=== PATIENT | female | born 1945 | race Caucasian/White ===

== ENCOUNTER → 2017-01-26 | Outpatient (CLI) | payer MEDICARE ==
[~2017-01-26] MED LIST: ASPI-496 PO; ASPI-650 PO; ATOR20TA9 PO; CA C1TAB39 PO; CALC-112 PO; CELE200C PO; DULO20CA45 PO; DULO30CA2 PO; DULO60CA7 PO; FESO4TAB PO; FLAX1000 PO; HYDR-3245 PO; LATA2.5D3 EACHEYE; MAGN100T6 PO; METO25TA35 PO; MILN50TA PO; MIRA25TA PO; MONT10TA9 PO; MULT-717 PO; NITR0.4T SL; NITR0.4T28 SL; OMEG1CAP48 PO; OMEP-110 PO; PANT40TA3 PO; PRAM0.255 PO; PREG150C PO; SANCTURA; SERUM EYE; SOLI10TA2 PO; TERB250T3 PO; TRAZ100T15 PO; VIT1CAPS9 PO; [UNRECOGNIZED DRUG - OTHER]
== END | disposition home or self-care (01) ==
LOC: CFH 12:42
PROVIDERS: ATTEND Nurse Practitioner Primary Care
DX: M51.36 Other intervertebral disc degeneration, lumbar region (principal); M51.35 Other intervertebral disc degeneration, thoracolumbar region; M48.06 Spinal stenosis, lumbar region; M43.16 Spondylolisthesis, lumbar region; Z98.890 Other specified postprocedural states
CPT/HCPCS: 72131

== ENCOUNTER → 2017-06-24 | Outpatient (CLI) | payer MEDICARE | END | disposition home or self-care (01) | LOC: RAD 13:40 | PROVIDERS: ATTEND Internal Medicine | DX: R91.8 Other nonspecific abnormal finding of lung field (principal); J45.41 Moderate persistent asthma with (acute) exacerbation | CPT/HCPCS: 71275 ==

== ENCOUNTER 2017-07-04 14:43 | Inpatient (IN) | payer MEDICARE ==
[~2017-07-04] VITALS: Ht 165.1 cm; Wt 88.6 kg
[2017-07-04] MEDS ORDERED: ALBUTEROL/IPRATROPIUM 2.5MG/0.5MG, 3 ML ONE (15:47)
[2017-07-04] MEDS: ALBUTEROL/IPRATROPIUM 2.5MG/0.5MG, 3 ML NPPB SCH ×4 (15:53→22:01)
[2017-07-04] MEDS ORDERED: SODIUM CHLORIDE FLUSH 10ML SYR IVF ONE (16:00)
[2017-07-04] MEDS ORDERED: CEFTRIAXONE PMX 1GM/50ML 50 ML IVPB ONE (16:00)
[2017-07-04] MEDS ORDERED: methylPREDNISolone SOD SUCC 125 MG/2 ML IVP ONE (16:00)
[2017-07-04] MEDS ORDERED: AZITHROMYCIN 500 MG in SODIUM CHLORIDE 0.9% 250 ML IVPB ONE (16:00)
[2017-07-04] MEDS ORDERED: BEPO10DR3 OP (16:09)
[2017-07-04] MEDS ORDERED: HYDR200T PO (16:09)
[2017-07-04] MEDS ORDERED: TROS20TA2 PEG (16:09)
[2017-07-04] MEDS ORDERED: LIGH1DRO OP (16:09)
[2017-07-04] MEDS ORDERED: HYDRO EYE (16:09)
[2017-07-04] MEDS ORDERED: TAPE150T PO (16:09)
[2017-07-04] MEDS ORDERED: FLUT1DIS5 IH (16:09)
[2017-07-04] MEDS ORDERED: TAPE50TA9 PO (16:09)
[2017-07-04] MEDS ORDERED: CEVI30CA4 PO (16:09)
[2017-07-04] MEDS ORDERED: LIFI1DRO OP (16:09)
[2017-07-04] MEDS ORDERED: METO50TA82 PO (16:09)
[2017-07-04 16:14] LABS: BASOPHILS # (AUTO) 0.02 x10^3/uL (0-0.1); BASOPHILS % (AUTO) 0 % (0-1); EOSINOPHILS # (AUTO) 0.22 x10^3/uL (0-0.4); EOSINOPHILS % (AUTO) 2 % (1-7); LYMPHOCYTES # (AUTO) 1.17 x10^3/uL (1-3.4); LYMPHOCYTES % (AUTO) 9 % (22-44); MD NO; MEAN CORPUSCULAR HEMOGLOBIN 28.5 pg (27.0-34.8); MEAN CORPUSCULAR HGB CONC 32.9 g/dL (32.4-35.8); MEAN CORPUSCULAR VOLUME 86.4 fL (80-100); MEAN PLATELET VOLUME 7.9 fL (7.4-10.4); MONOCYTES # (AUTO) 0.77 x10^3/uL (0.2-0.8); MONOCYTES % (AUTO) 6 % (2-9); NEUTROPHILS # (AUTO) 10.95 x10^3/uL (1.8-6.8); NEUTROPHILS % (AUTO) 83 % (42-75); PLATELET COUNT 269 x10^3/uL (130-400); RED BLOOD COUNT 5.69 x10^6/uL (3.82-5.3); RED CELL DISTRIBUTION WIDTH 15.2 % (9.6-15.2)
[2017-07-04 16:21] LABS: INTERNATIONAL NORMALIZED RATIO 0.98 (0.93-1.1); PROTHROMBIN TIME 10.2 Seconds (9.6-11.5)
[2017-07-04 16:25] LABS: ALBUMIN 3.7 g/dL (3.4-5.0); ANION GAP 5 mmol/L (5-15); CALCIUM 8.6 mg/dL (8.5-10.1); CHLORIDE 104 mmol/L (98-107); CREATININE 0.86 mg/dL (0.55-1.02)
[2017-07-04 16:28] LABS: TROPONIN I < 0.015 ng/mL (0.000-0.045)
[2017-07-04] MEDS ORDERED: CEFTRIAXONE PMX 1GM/50ML 50 ML ONE (16:53)
[2017-07-04] MEDS ORDERED: methylPREDNISolone SOD SUCC 125 MG/2 ML ONE (16:54)
[2017-07-04] MEDS: SODIUM CHLORIDE 0.9% 1,000 ML IV SCH (17:20)
[2017-07-04] MEDS ORDERED: LABETALOL 5MG/ML, 20ML IVPush PRN (17:30)
[2017-07-04] MEDS ORDERED: ENALAPRILAT 1.25 MG/ML, 2ML IVPush PRN (17:30)
[2017-07-04] MEDS ORDERED: BISACODYL 10 MG SUPP PR PRN (17:30)
[2017-07-04] MEDS ORDERED: SODIUM CHLORIDE FLUSH 10ML SYR IVF PRN (17:30)
[2017-07-04] MEDS ORDERED: DOCUSATE 100 MG CAPSULE PO PRN (17:30)
[2017-07-04] MEDS ORDERED: ONDANSETRON ODT 4 MG PO PRN (17:30)
[2017-07-04] MEDS ORDERED: ONDANSETRON 2MG/ML, 2ML IVPush PRN (17:30)
[2017-07-04] MEDS ORDERED: TAPENTADOL HCL 50 MG PO SCH (17:30)
[2017-07-04 19:35] VITALS: BP 104/70
[2017-07-04] MEDS: FLUTICASONE/VILANTEROL 200-25MCG/INH INH SCH (21:00)
[2017-07-04] MEDS: TAPENTADOL HCL 150 MG PO SCH (21:00)
[2017-07-04 21:09] VITALS: BP 108/65
[2017-07-04] MEDS: HEPARIN 5,000 UNITS/ML, 1ML SQ SCH (22:22)
[2017-07-04] MEDS: MONTELUKAST 10 MG TABLET PO SCH (22:23)
[2017-07-04] MEDS: PREGABALIN 150 MG CAPSULE PO SCH (22:23)
[2017-07-04] MEDS: LATANOPROST OPHTH 0.005%, 2.5ML EACHEYE SCH (22:23)
[2017-07-04] MEDS: ATORVASTATIN 20 MG TABLET PO SCH (22:23)
[2017-07-04] MEDS: TRAZODONE 100MG TABLET PO SCH (22:23)
[2017-07-04] MEDS: PRAMIPEXOLE 0.5MG TABLET PO SCH (22:24)
[2017-07-04] MEDS: HYDROXYCHLOROQUINE 200 MG TABLET PO SCH (22:24)
[2017-07-04] MEDS: CEVIMELINE HCL 30 MG PO SCH (22:25)
[2017-07-04] MEDS: TEMPLATE NON-FORMULARY MED. (Trospium Chloride 20 MG) PEG SCH (22:26)
[2017-07-04] MEDS: GUAIFENESIN/DM 200-20MG, 10ML UDC PO PRN (22:56)
[2017-07-05 02:50] VITALS: BP 112/70
[2017-07-05] MEDS: HEPARIN 5,000 UNITS/ML, 1ML SQ SCH ×3 (04:46→20:21)
[2017-07-05 05:26] LABS: MEAN CORPUSCULAR HEMOGLOBIN 28.6 pg (27.0-34.8); MEAN CORPUSCULAR HGB CONC 32.8 g/dL (32.4-35.8); MEAN CORPUSCULAR VOLUME 87.1 fL (80-100); MEAN PLATELET VOLUME 7.8 fL (7.4-10.4); PLATELET COUNT 244 x10^3/uL (130-400); RED BLOOD COUNT 5.16 x10^6/uL (3.82-5.3); RED CELL DISTRIBUTION WIDTH 15.3 % (9.6-15.2)
[2017-07-05 05:37] LABS: ANION GAP 7 mmol/L (5-15); CHLORIDE 109 mmol/L (98-107); CREATININE 0.79 mg/dL (0.55-1.02)
[2017-07-05 06:08] LABS: BASOPHILS % (AUTO) 0 % (0-1); EOSINOPHILS % (AUTO) 0 % (1-7); LYMPHOCYTES # (AUTO) 0.57 x10^3/uL (1-3.4); LYMPHOCYTES % (AUTO) 4 % (22-44); MD SCAN; MONOCYTES # (AUTO) 0.08 x10^3/uL (0.2-0.8); MONOCYTES % (AUTO) 1 % (2-9); NEUTROPHILS # (AUTO) 13.88 x10^3/uL (1.8-6.8); NEUTROPHILS % (AUTO) 96 % (42-75)
[2017-07-05] MEDS: ALBUTEROL/IPRATROPIUM 2.5MG/0.5MG, 3 ML NPPB SCH ×4 (06:35→19:15)
[2017-07-05] MEDS: SODIUM CHLORIDE 0.9% 1,000 ML IV SCH ×2 (06:45→20:40)
[2017-07-05] MEDS: TAPENTADOL HCL 150 MG PO SCH ×2 (09:00→20:23)
[2017-07-05] MEDS: MULTIVITAMINS/MINERALS TABLET PO SCH (09:00)
[2017-07-05] MEDS: CEVIMELINE HCL 30 MG PO SCH ×3 (09:00→20:28)
[2017-07-05] MEDS: SENNA/DOCUSATE TABLET PO SCH (09:00)
[2017-07-05] MEDS: TEMPLATE NON-FORMULARY MED. (Mirabegron** (Myrbetriq**) 25 MG) HOMEMEDPO SCH (09:00)
[2017-07-05] MEDS: TEMPLATE NON-FORMULARY MED. (Trospium Chloride 20 MG) PEG SCH ×2 (09:00→20:28)
[2017-07-05] MEDS: MAGNESIUM OXIDE 400 MG TABLET PO SCH (09:36)
[2017-07-05] MEDS: DULOXETINE 30 MG CAPSULE.DR PO SCH (09:37)
[2017-07-05] MEDS: ASPIRIN 325 MG TABLET EC PO SCH (09:37)
[2017-07-05] MEDS: PREGABALIN 150 MG CAPSULE PO SCH ×2 (09:37→20:22)
[2017-07-05] MEDS: METOPROLOL TARTRATE 50 MG TABLET PO SCH (09:38)
[2017-07-05] MEDS: HYDROXYCHLOROQUINE 200 MG TABLET PO SCH ×2 (09:38→20:22)
[2017-07-05 09:40] VITALS: BP 100/71
[2017-07-05] MEDS: ACETAMINOPHEN 325 MG TABLET PO PRN (09:48)
[2017-07-05] MEDS: FLUTICASONE/VILANTEROL 200-25MCG/INH INH SCH (11:28)
[2017-07-05] MEDS: AZITHROMYCIN 500 MG in SODIUM CHLORIDE 0.9% 250 ML IV SCH (11:28)
[2017-07-05 12:32] VITALS: BP 95/55
[2017-07-05] MEDS ORDERED: CEFTRIAXONE 1,000 MG in SODIUM CHLORIDE 0.9% 50 ML IV SCH (13:00)
[2017-07-05 20:17] VITALS: BP 97/53
[2017-07-05] MEDS: GUAIFENESIN/DM 200-20MG, 10ML UDC PO PRN (20:21)
[2017-07-05] MEDS: LATANOPROST OPHTH 0.005%, 2.5ML EACHEYE SCH (20:21)
[2017-07-05] MEDS: TRAZODONE 100MG TABLET PO SCH (20:22)
[2017-07-05] MEDS: MONTELUKAST 10 MG TABLET PO SCH (20:22)
[2017-07-05] MEDS: ATORVASTATIN 20 MG TABLET PO SCH (20:22)
[2017-07-05] MEDS: PRAMIPEXOLE 0.5MG TABLET PO SCH (20:22)
[2017-07-06 00:59] VITALS: BP 123/70
[2017-07-06] MEDS: HEPARIN 5,000 UNITS/ML, 1ML SQ SCH ×3 (04:29→20:55)
[2017-07-06 05:27] LABS: ANION GAP 3 mmol/L (5-15); CALCIUM 8.4 mg/dL (8.5-10.1); CHLORIDE 113 mmol/L (98-107)
[2017-07-06 05:29] LABS: CREATININE 0.55 mg/dL (0.55-1.02)
[2017-07-06 05:40] LABS: BASOPHILS # (AUTO) 0.03 x10^3/uL (0-0.1); BASOPHILS % (AUTO) 0 % (0-1); EOSINOPHILS # (AUTO) 0.01 x10^3/uL (0-0.4); EOSINOPHILS % (AUTO) 0 % (1-7); LYMPHOCYTES # (AUTO) 1.11 x10^3/uL (1-3.4); LYMPHOCYTES % (AUTO) 10 % (22-44); MD NO; MEAN CORPUSCULAR HEMOGLOBIN 28.9 pg (27.0-34.8); MEAN CORPUSCULAR HGB CONC 32.9 g/dL (32.4-35.8); MEAN CORPUSCULAR VOLUME 87.7 fL (80-100); MEAN PLATELET VOLUME 8.1 fL (7.4-10.4); MONOCYTES # (AUTO) 0.62 x10^3/uL (0.2-0.8); MONOCYTES % (AUTO) 6 % (2-9); NEUTROPHILS # (AUTO) 8.87 x10^3/uL (1.8-6.8); NEUTROPHILS % (AUTO) 83 % (42-75); PLATELET COUNT 220 x10^3/uL (130-400); RED BLOOD COUNT 4.67 x10^6/uL (3.82-5.3); RED CELL DISTRIBUTION WIDTH 15.9 % (9.6-15.2)
[2017-07-06 06:53] VITALS: BP 120/72
[2017-07-06] MEDS: ALBUTEROL/IPRATROPIUM 2.5MG/0.5MG, 3 ML NPPB SCH ×4 (07:10→19:16)
[2017-07-06] MEDS: FLUTICASONE/VILANTEROL 200-25MCG/INH INH SCH (07:57)
[2017-07-06] MEDS: METOPROLOL TARTRATE 50 MG TABLET PO SCH (07:57)
[2017-07-06] MEDS: ASPIRIN 325 MG TABLET EC PO SCH (07:57)
[2017-07-06] MEDS: MAGNESIUM OXIDE 400 MG TABLET PO SCH (07:58)
[2017-07-06] MEDS: DULOXETINE 30 MG CAPSULE.DR PO SCH (07:58)
[2017-07-06] MEDS: MULTIVITAMINS/MINERALS TABLET PO SCH (07:58)
[2017-07-06] MEDS: HYDROXYCHLOROQUINE 200 MG TABLET PO SCH ×2 (07:58→20:54)
[2017-07-06] MEDS: PREGABALIN 150 MG CAPSULE PO SCH ×2 (07:58→20:55)
[2017-07-06] MEDS: SENNA/DOCUSATE TABLET PO SCH (07:59)
[2017-07-06] MEDS: TAPENTADOL HCL 150 MG PO SCH ×2 (07:59→20:55)
[2017-07-06] MEDS: TEMPLATE NON-FORMULARY MED. (Mirabegron** (Myrbetriq**) 25 MG) HOMEMEDPO SCH (07:59)
[2017-07-06] MEDS: CEVIMELINE HCL 30 MG PO SCH ×3 (08:00→20:56)
[2017-07-06] MEDS: TEMPLATE NON-FORMULARY MED. (Trospium Chloride 20 MG) PEG SCH ×2 (08:00→20:56)
[2017-07-06] MEDS: SODIUM CHLORIDE 0.9% 1,000 ML IV SCH (08:34)
[2017-07-06] MEDS: CEFTRIAXONE PMX 2GM/50ML 50 ML IV SCH (10:33)
[2017-07-06] MEDS: AZITHROMYCIN 500 MG in SODIUM CHLORIDE 0.9% 250 ML IV SCH (12:02)
[2017-07-06 14:18] VITALS: BP 114/66
[2017-07-06 20:00] VITALS: BP 106/65
[2017-07-06] MEDS: ATORVASTATIN 20 MG TABLET PO SCH (20:54)
[2017-07-06] MEDS: MONTELUKAST 10 MG TABLET PO SCH (20:54)
[2017-07-06] MEDS: PRAMIPEXOLE 0.5MG TABLET PO SCH (20:54)
[2017-07-06] MEDS: TRAZODONE 100MG TABLET PO SCH (20:55)
[2017-07-06] MEDS: LATANOPROST OPHTH 0.005%, 2.5ML EACHEYE SCH (20:57)
[2017-07-06] MEDS: ACETAMINOPHEN 325 MG TABLET PO PRN (21:30)
[2017-07-07 02:00] VITALS: BP 130/76
[2017-07-07] MEDS: HEPARIN 5,000 UNITS/ML, 1ML SQ SCH ×3 (05:00→20:05)
[2017-07-07 05:24] LABS: BASOPHILS # (AUTO) 0.04 x10^3/uL (0-0.1); BASOPHILS % (AUTO) 1 % (0-1); EOSINOPHILS # (AUTO) 0.11 x10^3/uL (0-0.4); EOSINOPHILS % (AUTO) 1 % (1-7); LYMPHOCYTES # (AUTO) 1.28 x10^3/uL (1-3.4); LYMPHOCYTES % (AUTO) 14 % (22-44); MD NO; MEAN CORPUSCULAR HEMOGLOBIN 28.7 pg (27.0-34.8); MEAN CORPUSCULAR HGB CONC 33.2 g/dL (32.4-35.8); MEAN CORPUSCULAR VOLUME 86.4 fL (80-100); MEAN PLATELET VOLUME 8.1 fL (7.4-10.4); MONOCYTES % (AUTO) 8 % (2-9); NEUTROPHILS % (AUTO) 77 % (42-75); PLATELET COUNT 228 x10^3/uL (130-400); RED BLOOD COUNT 4.85 x10^6/uL (3.82-5.3); RED CELL DISTRIBUTION WIDTH 15.8 % (9.6-15.2)
[2017-07-07 05:33] LABS: ALANINE AMINOTRANSFERASE 22 U/L (12-78); ALBUMIN 2.7 g/dL (3.4-5.0); ANION GAP 4 mmol/L (5-15); CALCIUM 8.8 mg/dL (8.5-10.1); CHLORIDE 111 mmol/L (98-107); CREATININE 0.69 mg/dL (0.55-1.02)
[2017-07-07 05:35] LABS: ALKALINE PHOSPHATASE 64 U/L (45-117); BILIRUBIN,TOTAL 0.5 mg/dL (0.2-1.0)
[2017-07-07 06:46] VITALS: BP 131/72
[2017-07-07] MEDS: ALBUTEROL/IPRATROPIUM 2.5MG/0.5MG, 3 ML NPPB SCH ×4 (07:00→19:22)
[2017-07-07] MEDS: ASPIRIN 325 MG TABLET EC PO SCH (07:47)
[2017-07-07] MEDS: FLUTICASONE/VILANTEROL 200-25MCG/INH INH SCH (07:47)
[2017-07-07] MEDS: HYDROXYCHLOROQUINE 200 MG TABLET PO SCH ×2 (07:47→20:04)
[2017-07-07] MEDS: DULOXETINE 30 MG CAPSULE.DR PO SCH (07:47)
[2017-07-07] MEDS: SENNA/DOCUSATE TABLET PO SCH (07:47)
[2017-07-07] MEDS: PREGABALIN 150 MG CAPSULE PO SCH ×2 (07:47→20:04)
[2017-07-07] MEDS: MULTIVITAMINS/MINERALS TABLET PO SCH (07:48)
[2017-07-07] MEDS: METOPROLOL TARTRATE 50 MG TABLET PO SCH (07:48)
[2017-07-07] MEDS: CEVIMELINE HCL 30 MG PO SCH ×3 (07:49→20:05)
[2017-07-07] MEDS: TEMPLATE NON-FORMULARY MED. (Trospium Chloride 20 MG) PEG SCH ×2 (07:49→20:05)
[2017-07-07] MEDS: TEMPLATE NON-FORMULARY MED. (Mirabegron** (Myrbetriq**) 25 MG) HOMEMEDPO SCH (07:50)
[2017-07-07] MEDS: TAPENTADOL HCL 150 MG PO SCH ×2 (07:51→19:50)
[2017-07-07] MEDS: MAGNESIUM OXIDE 400 MG TABLET PO SCH (07:57)
[2017-07-07] MEDS ORDERED: SODIUM CHLORIDE 0.45% 500 ML IV SCH (08:30)
[2017-07-07] MEDS: CEFTRIAXONE PMX 2GM/50ML 50 ML IV SCH (10:37)
[2017-07-07] MEDS: ACETAMINOPHEN 325 MG TABLET PO PRN (10:37)
[2017-07-07] MEDS: AZITHROMYCIN 500 MG in SODIUM CHLORIDE 0.9% 250 ML IV SCH (11:59)
[2017-07-07 12:38] VITALS: BP 98/59
[2017-07-07 20:00] VITALS: BP 101/53
[2017-07-07] MEDS: GUAIFENESIN/DM 200-20MG, 10ML UDC PO PRN (20:03)
[2017-07-07] MEDS: TRAZODONE 100MG TABLET PO SCH (20:04)
[2017-07-07] MEDS: MONTELUKAST 10 MG TABLET PO SCH (20:04)
[2017-07-07] MEDS: ATORVASTATIN 20 MG TABLET PO SCH (20:04)
[2017-07-07] MEDS: PRAMIPEXOLE 0.5MG TABLET PO SCH (20:04)
[2017-07-07] MEDS: LATANOPROST OPHTH 0.005%, 2.5ML EACHEYE SCH (20:05)
[2017-07-08 01:45] VITALS: BP 109/77
[2017-07-08] MEDS: ACETAMINOPHEN 325 MG TABLET PO PRN ×2 (04:01→10:19)
[2017-07-08] MEDS: HEPARIN 5,000 UNITS/ML, 1ML SQ SCH ×2 (05:17→13:00)
[2017-07-08 05:52] LABS: BASOPHILS # (AUTO) 0.02 x10^3/uL (0-0.1); BASOPHILS % (AUTO) 0 % (0-1); EOSINOPHILS # (AUTO) 0.14 x10^3/uL (0-0.4); EOSINOPHILS % (AUTO) 2 % (1-7); LYMPHOCYTES # (AUTO) 1.16 x10^3/uL (1-3.4); LYMPHOCYTES % (AUTO) 13 % (22-44); MD NO; MEAN CORPUSCULAR HEMOGLOBIN 28.5 pg (27.0-34.8); MEAN CORPUSCULAR VOLUME 86.6 fL (80-100); MEAN PLATELET VOLUME 8.2 fL (7.4-10.4); MONOCYTES # (AUTO) 0.74 x10^3/uL (0.2-0.8); MONOCYTES % (AUTO) 8 % (2-9); NEUTROPHILS # (AUTO) 7.15 x10^3/uL (1.8-6.8); NEUTROPHILS % (AUTO) 78 % (42-75); PLATELET COUNT 246 x10^3/uL (130-400); RED BLOOD COUNT 4.71 x10^6/uL (3.82-5.3); RED CELL DISTRIBUTION WIDTH 15.8 % (9.6-15.2)
[2017-07-08 06:00] LABS: ANION GAP 5 mmol/L (5-15); CALCIUM 8.4 mg/dL (8.5-10.1); CHLORIDE 107 mmol/L (98-107); CREATININE 0.65 mg/dL (0.55-1.02)
[2017-07-08 06:58] VITALS: BP 120/73
[2017-07-08] MEDS: ALBUTEROL/IPRATROPIUM 2.5MG/0.5MG, 3 ML NPPB SCH ×2 (07:40→11:30)
[2017-07-08] MEDS: SENNA/DOCUSATE TABLET PO SCH (09:00)
[2017-07-08] MEDS: TAPENTADOL HCL 150 MG PO SCH (09:00)
[2017-07-08] MEDS: MULTIVITAMINS/MINERALS TABLET PO SCH (10:13)
[2017-07-08] MEDS: HYDROXYCHLOROQUINE 200 MG TABLET PO SCH (10:13)
[2017-07-08] MEDS: FLUTICASONE/VILANTEROL 200-25MCG/INH INH SCH (10:13)
[2017-07-08] MEDS: PREGABALIN 150 MG CAPSULE PO SCH (10:14)
[2017-07-08] MEDS: MAGNESIUM OXIDE 400 MG TABLET PO SCH (10:14)
[2017-07-08] MEDS: ASPIRIN 325 MG TABLET EC PO SCH (10:14)
[2017-07-08] MEDS: METOPROLOL TARTRATE 50 MG TABLET PO SCH (10:14)
[2017-07-08] MEDS: DULOXETINE 30 MG CAPSULE.DR PO SCH (10:14)
[2017-07-08] MEDS: TEMPLATE NON-FORMULARY MED. (Mirabegron** (Myrbetriq**) 25 MG) HOMEMEDPO SCH (10:16)
[2017-07-08] MEDS: TEMPLATE NON-FORMULARY MED. (Trospium Chloride 20 MG) PEG SCH (10:16)
[2017-07-08] MEDS: CEVIMELINE HCL 30 MG PO SCH (10:16)
[2017-07-08] MEDS ORDERED: METO25TA91 PO (10:47)
[2017-07-08] MEDS ORDERED: TAPE100T8 PO (10:48)
[2017-07-08] MEDS ORDERED: DULO30CA2 PO (10:50)
[2017-07-08] MEDS: CEFTRIAXONE PMX 2GM/50ML 50 ML IV SCH (11:13)
[2017-07-08] MEDS: AZITHROMYCIN 500 MG in SODIUM CHLORIDE 0.9% 250 ML IV SCH (12:00)
[2017-07-08 12:13] VITALS: BP 94/60
[2017-07-08] MEDS ORDERED: CEFD300C37 PO (13:07)
[2017-07-08] MEDS ORDERED: DOXY100T PO (13:08)
== END 2017-07-08 14:00 | disposition home or self-care (01) | DRG 871 ==
LOC: ED 17:00 → EDIP 17:01 → ED 17:33 → 4WST 19:29
PROVIDERS: ADMIT Internal Medicine; ATTEND Internal Medicine
DX: A41.9 Sepsis, unspecified organism (principal); J15.9 Unspecified bacterial pneumonia; J96.01 Acute respiratory failure with hypoxia; E66.01 Morbid (severe) obesity due to excess calories; Z68.31 Body mass index [BMI] 31.0-31.9, adult; I25.10 Atherosclerotic heart disease of native coronary artery without angina pectoris; J45.909 Unspecified asthma, uncomplicated; K21.9 Gastro-esophageal reflux disease without esophagitis; M79.7 Fibromyalgia; Z87.01 Personal history of pneumonia (recurrent); Z90.710 Acquired absence of both cervix and uterus; Z95.1 Presence of aortocoronary bypass graft; Z68.32 Body mass index [BMI] 32.0-32.9, adult
CPT/HCPCS: 36415; 71046; 80048; 80053; 82040; 83605; 83735; 83880; 84484; 85025; 85610; 85730; 87040; 87070; 87205; 93005; 94640; 96365; 96366; 96375; J0456; J0696; J1644; J7620; J2930; J7030; J7050

== ENCOUNTER → 2017-11-25 | Outpatient (CLI) | payer MEDICARE ==
[~2017-11-25] MED LIST changes: +BEPO10DR3 OP; +CEFD300C37 PO; +CEVI30CA4 PO; +DOXY100T PO; +FLUT1DIS5 IH; +HYDR200T72 PO; +HYDRO EYE; +LIFI1DRO OP; +LIGH1DRO OP; +METO25TA91 PO; +METO50TA82 PO; +TAPE100T8 PO; +TAPE150T PO; +TAPE50TA9 PO; +TRAZ-137 PO; -TRAZ100T15 PO; +TROS20TA2 PEG
== END | disposition home or self-care (01) ==
LOC: CVU 14:43
PROVIDERS: ATTEND Internal Medicine Cardiovascular Disease
DX: I65.23 Occlusion and stenosis of bilateral carotid arteries (principal); I08.3 Combined rheumatic disorders of mitral, aortic and tricuspid valves; I10 Essential (primary) hypertension; I25.10 Atherosclerotic heart disease of native coronary artery without angina pectoris
CPT/HCPCS: 93306; 93880

== ENCOUNTER → 2017-12-21 | Outpatient (CLI) | payer MEDICARE ==
[~2017-12-21] MED LIST changes: +REGADENOSON 0.4 MG/5 ML SYRINGE ONE
== END | disposition home or self-care (01) ==
LOC: CFH 07:54
PROVIDERS: ATTEND Internal Medicine Cardiovascular Disease
DX: I25.10 Atherosclerotic heart disease of native coronary artery without angina pectoris (principal); I49.3 Ventricular premature depolarization; Z95.1 Presence of aortocoronary bypass graft
CPT/HCPCS: 78452; 93017; A9502; J2785

== ENCOUNTER 2018-01-25 11:34 | Day surgery (SDC) | payer MEDICARE ==
[~2018-01-25 11:34] MED LIST changes: -REGADENOSON 0.4 MG/5 ML SYRINGE ONE
[2018-01-25] MEDS ORDERED: SODIUM CHLORIDE 0.9% 1,000 ML IV SCH (12:19)
[2018-01-25] MEDS ORDERED: LIDOCAINE-MPF 2%, 2ML ONE (13:12)
[2018-01-25] MEDS ORDERED: OMNIPAQUE 300 MG/ML, 10ML VIAL ONE (14:32)
== END 2018-01-25 17:45 | disposition home or self-care (01) ==
LOC: OUT 11:34
PROVIDERS: ATTEND Internal Medicine Cardiovascular Disease
DX: M51.36 Other intervertebral disc degeneration, lumbar region (principal); J44.9 Chronic obstructive pulmonary disease, unspecified; Z88.1 Allergy status to other antibiotic agents; Z88.8 Allergy status to other drugs, medicaments and biological substances
CPT/HCPCS: 62284; 72082; 72129; 72132; J3490; Q9967

== ENCOUNTER → 2018-08-04 | Outpatient (CLI) | payer MEDICARE ==
[~2018-08-04] MED LIST changes: +ASPI81TA45 PO; +ATOR20TA37 PO; -ATOR20TA9 PO; +BUDE10.2 INH; +ISOS30TA8 PO; +MAGNESIUM PO; -TROS20TA2 PEG; +TROS20TA2 PO
== END | disposition home or self-care (01) ==
LOC: CVU 14:43
PROVIDERS: ATTEND Internal Medicine Cardiovascular Disease
DX: I08.3 Combined rheumatic disorders of mitral, aortic and tricuspid valves (principal); I65.23 Occlusion and stenosis of bilateral carotid arteries; I25.10 Atherosclerotic heart disease of native coronary artery without angina pectoris; Z95.1 Presence of aortocoronary bypass graft
CPT/HCPCS: 93306; 93880

== ENCOUNTER 2018-08-05 12:07 | Day surgery (SDC) | payer MEDICARE ==
[~2018-08-05] VITALS: Ht 165.1 cm; Wt 100.0 kg
[~2018-08-05 12:07] MED LIST changes: -ASPI81TA45 PO; -BUDE10.2 INH; -ISOS30TA8 PO; -MAGNESIUM PO
[2018-08-05] MEDS ORDERED: SODIUM CHLORIDE 0.9% 1,000 ML IV SCH ×2 (13:16→15:46)
[2018-08-05] MEDS ORDERED: ASPIRIN 325 MG TABLET EC ONE (13:29)
[2018-08-05] MEDS ORDERED: ASPIRIN 325 MG TABLET EC PO ONE (13:30)
[2018-08-05] MEDS ORDERED: MULT-717 PO (13:47)
[2018-08-05] MEDS ORDERED: MAGNESIUM PO (13:47)
[2018-08-05] MEDS ORDERED: CALC-112 PO (13:47)
[2018-08-05] MEDS ORDERED: ASPI81TA45 PO (13:47)
[2018-08-05] MEDS ORDERED: TAPE50TA9 PO (13:47)
[2018-08-05] MEDS ORDERED: BUDE10.2 INH (13:47)
[2018-08-05] MEDS ORDERED: ISOS30TA8 PO (13:48)
[2018-08-05 13:55] VITALS: BP 111/56
[2018-08-05] MEDS ORDERED: PLEASE ENTER HEIGHT AND WEIGHT MC SCH (14:00)
[2018-08-05 14:05] LABS: BASOPHILS # (AUTO) 0.02 x10^3/uL (0-0.1); BASOPHILS % (AUTO) 0 % (0-1); EOSINOPHILS # (AUTO) 0.55 x10^3/uL (0-0.4); EOSINOPHILS % (AUTO) 8 % (1-7); LYMPHOCYTES # (AUTO) 1.05 x10^3/uL (1-3.4); LYMPHOCYTES % (AUTO) 14 % (22-44); MD NO; MEAN CORPUSCULAR HEMOGLOBIN 29.5 pg (27.0-34.8); MEAN CORPUSCULAR HGB CONC 33.4 g/dL (32.4-35.8); MEAN CORPUSCULAR VOLUME 88.4 fL (80-100); MEAN PLATELET VOLUME 7.8 fL (7.4-10.4); MONOCYTES # (AUTO) 0.48 x10^3/uL (0.2-0.8); MONOCYTES % (AUTO) 7 % (2-9); NEUTROPHILS # (AUTO) 5.17 x10^3/uL (1.8-6.8); NEUTROPHILS % (AUTO) 71 % (42-75); PLATELET COUNT 277 x10^3/uL (130-400); RED BLOOD COUNT 4.64 x10^6/uL (3.82-5.3); RED CELL DISTRIBUTION WIDTH 14.2 % (9.6-15.2)
[2018-08-05] MEDS ORDERED: FENTANYL PF 100 MCG/2ML ONE (14:18)
[2018-08-05] MEDS ORDERED: LIDOCAINE 1%, 20ML ONE (14:19)
[2018-08-05] MEDS ORDERED: MIDAZOLAM 1 MG/ML, 5ML ONE (14:19)
== END 2018-08-05 18:00 | disposition home or self-care (01) ==
LOC: CACL 12:07
PROVIDERS: ATTEND Internal Medicine Cardiovascular Disease
DX: I25.700 Atherosclerosis of coronary artery bypass graft(s), unspecified, with unstable angina pectoris (principal); I10 Essential (primary) hypertension; E78.5 Hyperlipidemia, unspecified; E78.2 Mixed hyperlipidemia; E11.9 Type 2 diabetes mellitus without complications; I35.0 Nonrheumatic aortic (valve) stenosis; F32.9 Major depressive disorder, single episode, unspecified; J45.909 Unspecified asthma, uncomplicated; Z88.1 Allergy status to other antibiotic agents; Z79.82 Long term (current) use of aspirin; Z95.1 Presence of aortocoronary bypass graft; Z79.4 Long term (current) use of insulin
CPT/HCPCS: 36415; 85025; 93459; 99156; C1760; C1769; C1894; J2250; J3010; J3490; Q9967

== ENCOUNTER 2018-10-19 14:22 | Outpatient (CLI) | payer MEDICARE ==
[~2018-10-19 14:22] MED LIST changes: +ASPI81TA45 PO; +BUDE10.2 INH; +ISOS30TA8 PO; +MAGNESIUM PO; -NITR0.4T SL; +NITR0.4T41 SL
== END 2018-10-19 23:59 | disposition home or self-care (01) ==
LOC: CARD 14:22
PROVIDERS: ATTEND Nurse Practitioner
DX: J44.9 Chronic obstructive pulmonary disease, unspecified (principal)
CPT/HCPCS: 94060; 94618; 94726; 94729